=== PATIENT | male | born 1995 | race Caucasian/White ===

== ENCOUNTER 2021-12-23 12:05 | Observation (INO) ==
[2021-12-23] MEDS ORDERED: Famotidine 20 MG TABLET PO ONE (12:30)
[2021-12-23] MEDS ORDERED: Celecoxib 100 MG CAPSULE PO ONE (12:30)
[2021-12-23] MEDS ORDERED: CeFAZolin Syr 3,000MG/30 ML 3,000 MG/30 ML SYRINGE IVPB ONE (12:34)
[2021-12-23] MEDS ORDERED: Ringers Solution, Lactated 1,000 ML IVC SCH (12:45)
[2021-12-23] MEDS ORDERED: *HR* Midazolam HCl 2 MG/2 ML VIAL ONE (13:04)
[2021-12-23] MEDS ORDERED: Heparin 1,000 UNITS/500 mL 500 ML ONE (13:04)
[2021-12-23] MEDS ORDERED: *HR* FentaNYL (PF) 100 MCG/2 ML VIAL ONE (13:04)
[2021-12-23] MEDS ORDERED: *HR* Propofol 200 MG/20 ML VIAL IVP ONE ×2 (13:04→14:22)
[2021-12-23] MEDS ORDERED: Ondansetron 4 MG/2 ML VIAL IVP PRN ×4 (13:30→17:24)
[2021-12-23] MEDS ORDERED: *HR* HYDROmorphone PF 0.5 MG/0.5 ML SYRINGE IVP PRN (13:30)
[2021-12-23] MEDS ORDERED: Lidocaine -MPF 2% 5 ML VIAL ONE (13:42)
[2021-12-23] MEDS ORDERED: Lidocaine HCL 4 ML Topical Solution (Laryng-O-Jet Kit Sterile Pak) TP ONE (13:42)
[2021-12-23] MEDS ORDERED: *HR* Rocuronium Bromide 50 MG/5 ML VIAL ONE (13:42)
[2021-12-23] MEDS ORDERED: *HR* Succinylcholine 200 MG/10 ML VIAL IVP ONE (13:58)
[2021-12-23] MEDS ORDERED: *HR* HYDROMORPHONE 2 MG/ML VIAL ONE (15:17)
[2021-12-23] MEDS ORDERED: Naloxone 0.4 MG/ML INJ IVP PRN ×2 (17:17→17:24)
[2021-12-23] MEDS ORDERED: Dextrose Gel 15 GM/37.5 ML TUBE PO PRN ×6 (17:20→17:24)
[2021-12-23] MEDS ORDERED: D5% in Water 1,000 ML IVC PRN ×3 (17:20→17:24)
[2021-12-23] MEDS ORDERED: *HR* Dextrose 50 % in Water (Syg) 50 ML SYRINGE IVP PRN ×3 (17:20→17:24)
[2021-12-23] MEDS ORDERED: Cortisporin *EAR*Susp 10 ML BOTTLE RIGHT EAR SCH (17:24)
[2021-12-23] MEDS ORDERED: Ibuprofen 600 MG TABLET PO PRN (17:24)
[2021-12-23] MEDS ORDERED: *HR* HYDROcodone/Acet 5/325 mg TABLET PO PRN (17:24)
[2021-12-23] MEDS ORDERED: *HR* Metoprolol 5 MG/5 ML VIAL IVP PRN (17:24)
[2021-12-23] MEDS ORDERED: Insulin LISPRO 300 UNITS/3 ML VIAL SUBQ SCH ×2 (18:00→21:00)
[2021-12-23] MEDS: Ringers Solution, Lactated 1,000 ML IVC SCH (20:50)
[2021-12-23] MEDS: Metoprolol XL (24 HR) Succ 50 MG TAB.ER.24H PO SCH (20:51)
[2021-12-23] MEDS: Insulin LISPRO 300 UNITS/3 ML VIAL SUBQ SCH (20:56)
[2021-12-23] MEDS: Piperacillin/Tazobactam 3.375 GM in 0.9 % Sodium Chloride Mini Bag 100 ML IVPB SCH (23:48)
[2021-12-23] MEDS: *HR* Heparin 5,000 UNIT/ML VIAL SQ SCH (23:48)
[2021-12-24 03:20] LABS: Basophils % 0.2 %; Eosinophils % 0.1 %; Hematocrit 41.9 % (37.5-50.1); Immature Granulocytes % 0.4 % (0-4); Lymphocytes # 1.1 K/mcL (0.6-4.6); Lymphocytes % 12.5 %; Mean Corpuscular HGB Conc 32.5 g/dL (31.6-35.5); Mean Corpuscular Hemoglobin 27.4 pg (28.0-33.3); Mean Corpuscular Volume 84.3 fL (83.0-100.0); Mean Platelet Volume 11.3 fL (9.4-12.4); Monocytes # 0.4 K/mcL (0.0-1.3); Monocytes % 4.9 %; Neutrophils # 6.9 K/mcL (1.6-8.9); Platelet Count 229 K/mcL (140-400); Red Blood Count 4.97 M/mcL (4.19-5.50); Red Cell Distribution Width 13.5 % (11.5-14.5); Segmented Neutrophils % 81.9 %; White Blood Count 8.4 K/mcL (4.3-11.1)
[2021-12-24 03:23] LABS: Hemoglobin 13.6 g/dL (12.9-16.9)
[2021-12-24 03:40] LABS: BUN/Creatinine Ratio 19 (6-26); Blood Urea Nitrogen 12 mg/dL (6-20); Calcium 8.9 mg/dL (8.6-10.3); Carbon Dioxide 20 mEq/L (23-29); Chloride 104 mEq/L (98-107); Glucose 162 mg/dL (70-105); Osmolality,Calculated 283 (280-300); Potassium 3.9 mEq/L (3.5-5.1); Sodium 135 mEq/L (136-145); eGFR For African Americans > 60 (> 60); eGFR For Non-African Americans > 60 (> 60)
[2021-12-24] MEDS ORDERED: Insulin LISPRO 300 UNITS/3 ML VIAL SUBQ SCH (07:30)
[2021-12-24] MEDS ORDERED: *HR* Glimepiride 2 MG TABLET PO SCH (08:00)
[2021-12-24] MEDS: *HR* Heparin 5,000 UNIT/ML VIAL SQ SCH ×3 (08:01→23:49)
[2021-12-24] MEDS: Piperacillin/Tazobactam 3.375 GM in 0.9 % Sodium Chloride Mini Bag 100 ML IVPB SCH ×3 (08:02→23:48)
[2021-12-24] MEDS: Metoprolol XL (24 HR) Succ 50 MG TAB.ER.24H PO SCH ×2 (08:02→21:19)
[2021-12-24] MEDS: FLUoxetine 20 MG CAPSULE PO SCH (08:03)
[2021-12-24] MEDS: Cyanocobalamin (B-12) 1,000 MCG TABLET PO SCH (08:03)
[2021-12-24] MEDS: lisinopriL 5 MG TABLET PO SCH (08:03)
[2021-12-24] MEDS: Insulin LISPRO 300 UNITS/3 ML VIAL SUBQ SCH ×4 (08:04→21:16)
[2021-12-24] MEDS ORDERED: METOPROLOL 200 MG PO SCH (09:00)
[2021-12-24] MEDS ORDERED: Pantoprazole 40 MG VIAL IVP SCH (09:00)
[2021-12-24] MEDS ORDERED: TRADJENTA PO SCH (09:00)
[2021-12-24] MEDS ORDERED: JARDIANCE 10 MG PO SCH (09:00)
[2021-12-24] MEDS ORDERED: METFORMIN 1000 MG PO SCH (09:00)
[2021-12-24] MEDS: Ringers Solution, Lactated 1,000 ML IVC SCH (14:58)
[2021-12-25 07:54] VITALS: O2SAT 97
[2021-12-25] MEDS: Piperacillin/Tazobactam 3.375 GM in 0.9 % Sodium Chloride Mini Bag 100 ML IVPB SCH (08:57)
[2021-12-25] MEDS: Metoprolol XL (24 HR) Succ 50 MG TAB.ER.24H PO SCH (08:59)
[2021-12-25] MEDS: FLUoxetine 20 MG CAPSULE PO SCH (08:59)
[2021-12-25] MEDS: Cyanocobalamin (B-12) 1,000 MCG TABLET PO SCH (09:00)
[2021-12-25] MEDS: lisinopriL 5 MG TABLET PO SCH (09:00)
[2021-12-25] MEDS: Insulin LISPRO 300 UNITS/3 ML VIAL SUBQ SCH ×2 (09:01→12:16)
[2021-12-25] MEDS: *HR* Heparin 5,000 UNIT/ML VIAL SQ SCH (09:01)
[2021-12-25 15:30] VITALS: BP 111/57; PULSE 60; TEMP 98
== END 2021-12-25 16:33 | disposition home health service (06) ==
LOC: EDACCT# → SAMDAY 12:05 → INTOOBSV 16:19 → 3ANU 16:19
PROVIDERS: ADMIT Surgery; ATTEND Surgery